=== PATIENT | male | born 1995 | race African-American/Black ===

== ENCOUNTER 2019-01-27 21:49 | Inpatient (IN) | payer SELFPAY ==
[~2019-01-27] VITALS: Ht 175.3 cm; Wt 65.0 kg
[2019-01-27 21:58] VITALS: Ht 175.3 cm; Wt 65.0 kg
[2019-01-27] MEDS ORDERED: HYDROmorphONE 1 MG/ML SYG IV STA ×2 (22:18→23:23)
[2019-01-27] MEDS ORDERED: SOD CHLORIDE 0.9% 1,000 ML IV STA (22:18)
[2019-01-27] MEDS ORDERED: ONDANSETRON 4 MG INJ IV STA ×2 (22:18→23:23)
[2019-01-28] MEDS ORDERED: HYDROmorphONE 2 MG/ML SYG IV STA (00:23)
[2019-01-28] MEDS ORDERED: KETOROLAC 30 MG INJ IV STA (00:31)
--- NOTE | 2019-01-28 00:33 | ERD ---
ER Documentation Chief Complaint Chief Complaint c/o body pain, joint pain x 3 days, hx of sickle cell HPI This is a very pleasant 23-year-old male complains of body pain joint pain for 3 days. Patient has history of sickle cell anemia. Says this is normal for her. Denies fevers or chills. He says taking medications at home with no relief. Denies any other current complaints. ROS All systems reviewed and are negative except as per history of present illness. Allergies Allergies: Coded Allergies: Sulfa (Sulfonamide Antibiotics) (Verified Allergy, Unknown, rash, 01/27/19) PMhx/Soc Medical and Surgical Hx: pt denies Surgical Hx History of Surgery: No Hx Miscellaneous Medical Probl: Yes (Sickle cell disease) Hx Alcohol Use: No Hx Substance Use: No Hx Tobacco Use: No Smoking Status: Unknown if ever smoked Physical Exam Vitals Vital Signs Date Temp Pulse Resp B/P (MAP) Pulse Ox O2 O2 Flow FiO2 Time Delivery Rate 01/28/19 65 17 113/69 98 Room Air 00:25 (84) 01/27/19 65 18 114/71 95 Room Air 23:20 (85) 01/27/19 97.9 76 18 126/72 95 21:58 (90) Physical Exam Const: No acute distress Head: Atraumatic Eyes: Normal Conjunctiva ENT: Normal External Ears, Nose and Mouth. Neck: Full range of motion. No meningismus. Resp: Clear to auscultation bilaterally Cardio: Regular rate and rhythm, no murmurs Abd: Soft, non tender, non distended. Normal bowel sounds Skin: No petechiae or rashes Back: No midline or flank tenderness Ext: No cyanosis, or edema Neur: Awake and alert Psych: Normal Mood and Affect Result Diagram: 01/27/19223501/27/192237 Results 24 hrs Laboratory Tests Test 01/27/19 22:36 01/27/19 22:38 White Blood Count 13.1 10^3/ul Red Blood Count 2.66 10^6/ul Hemoglobin 7.8 g/dl Hematocrit 22.4 % Mean Corpuscular Volume 84.2 fl Mean Corpuscular Hemoglobin 29.3 pg Mean Corpuscular Hemoglobin Concent 34.8 g/dl Red Cell Distribution Width 24.9 % Platelet Count 523 10^3/UL Mean Platelet Volume 9.8 fl Immature Granulocytes % 0.400 % Neutrophils % 40.0 % Segmented Neutrophils % (Manual) 32 % Lymphocytes % 44.3 % Lymphocytes % (Manual) 51 % Monocytes % 10.8 % Monocytes % (Manual) 6 % Eosinophils % 3.7 % Eosinophils % (Manual) 10 % Basophils % 0.8 % Basophils % (Manual) 1 % Nucleated Red Blood Cells % 0.6 /100WBC Immature Granulocytes # 0.050 10^3/ul Neutrophils # 5.2 10^3/ul Lymphocytes (Manual) 6.6 10^3/ul Lymphocytes # 5.8 10^3/ul Monocytes # 1.4 10^3/ul Monocytes # (Manual) 0.7 10^3/ul Eosinophils # 0.5 10^3/ul Basophils # 0.1 10^3/ul Basophils # (Manual) 0.1 10^3/ul Nucleated Red Blood Cells # 0.1 10^3/ul Platelet Estimate NORMAL Polychromasia 2+ Hypochromasia 1+ Poikilocytosis 3+ Anisocytosis 2+ Microcytosis 2+ Macrocytosis 1+ Sickle Cells 3+ Absolute Reticulocyte Count 0.350 X10^6 Percent Reticulocyte Count 13.2 % Iron Level 50 ug/dl Total Iron Binding Capacity 363 ug/dl Percent Iron Saturation 14 % SAT Sodium Level 140 mmol/L Potassium Level 3.5 mmol/L Chloride Level 104 mmol/L Carbon Dioxide Level 29 mmol/L Anion Gap 7 Blood Urea Nitrogen 7 mg/dl Creatinine 0.62 mg/dl Est Glomerular Filtrat Rate mL/min > 60 mL/min Glucose Level 105 mg/dl Calcium Level 9.0 mg/dl Ferritin 34.5 ng/ml Total Bilirubin 3.2 mg/dl Direct Bilirubin 0.00 mg/dl Indirect Bilirubin 3.2 mg/dl Aspartate Amino Transf (AST/SGOT) 48 IU/L Alanine Aminotransferase (ALT/SGPT) 29 IU/L Alkaline Phosphatase 52 IU/L Lactate Dehydrogenase 1521 IU/L Total Protein 7.9 g/dl Albumin 4.0 g/dl Globulin 3.90 g/dl Albumin/Globulin Ratio 1.02 Current Medications Medications Dose Sig/Tank Start Time Status Last (Trade) Ordered Route PRN Stop Time Admin Dose Reason Admin Sodium 1,000 ml @ Q1H STAT 01/27/19 DC 01/27/19 Chloride 1,000 mls/hr IV 22:18 22:27 01/27/19 23:17 1 mg ONCE STAT 01/27/19 DC 01/27/19 Hydromorphone IV 22:18 22:27 HCl 01/27/19 22:20 (Dilaudid) Ondansetron 4 mg ONCE STAT 01/27/19 DC 01/27/19 HCl (Zofran IV 22:18 22:27 Inj) 01/27/19 22:20 1 mg ONCE STAT 01/27/19 DC 01/27/19 Hydromorphone IV 23:23 23:26 HCl 01/27/19 23:24 (Dilaudid) Ondansetron 4 mg ONCE STAT 01/27/19 DC 01/27/19 HCl (Zofran IV 23:23 23:26 Inj) 01/27/19 23:24 2 mg ONCE STAT 01/28/19 DC Hydromorphone IV 00:23 HCl 01/28/19 00:29 (Dilaudid) Procedures/MDM Medical decision making: This is a 23-year-old male with vaso-occlusive crisis. Treated with fluids and pain medications. Patient has a severely elevated reticulocyte count and will need observation given his continued need for opioid analgesia. Dr. Murphy made aware. Departure Diagnosis: Primary Impression: Sickle cell crisis Condition: Serious LAKSHMI DAVID Jan 28, 2019 00:33
[2019-01-28] MEDS ORDERED: DIPHENHYDRAMINE 50 MG INJ IV ONE (01:00)
[2019-01-28] MEDS ORDERED: ONDANSETRON 4 MG INJ IV PRN ×2 (01:00)
[2019-01-28] MEDS ORDERED: BISACODYL (EC) 5 MG TAB PO PRN (01:00)
[2019-01-28] MEDS ORDERED: NACL 0.9% 3 ML SYG IV SCH (01:00)
[2019-01-28] MEDS ORDERED: DOCUSATE SODIUM 100 MG CAP PO PRN (01:00)
[2019-01-28] MEDS ORDERED: ACETAMINOPHEN 325 MG TAB PO PRN ×2 (01:00)
--- NOTE | 2019-01-28 01:40 | HP ---
Date/Time of Note Date/Time of Note DATE: 01/28/19 TIME: 01:40 Assessment/Plan VTE Prophylaxis Pharmacological prophylaxis: LMWH Lines/Catheters IV Catheter Type (from Nrs): Saline Lock Assessment/Plan Hospital Course This is a 23-year-old male being admitted to the [facility] floor for: #1 acute sickle cell crisis: Aggressive IV fluid hydration with normal saline, pain control with Dilaudid and Toradol. Zofran for nausea. PRN Benadryl for itching. Chest x-ray did not show any acute ab normalities. Will check urinalysis. Baseline hemoglobin according to the patient is 7.5-8, will transfuse PRBC if these levels drop. #2 Hyperbilirubinemia: likely secondary to sickeling. will check ruq US. #3 social work: Assistance in finding a PCP, assistance with current legal trouble. #4 DVT GI prophylaxis: Lovenox, no GI prophylaxis indicated Further treatment strategy will be implemented as per the clinical course. Result Diagram: 01/27/19223501/27/192237 Results 24hrs Laboratory Tests Test 01/27/19 22:36 01/27/19 22:38 White Blood Count 13.1 H Red Blood Count 2.66 L Hemoglobin 7.8 L Hematocrit 22.4 L Mean Corpuscular Volume 84.2 Mean Corpuscular Hemoglobin 29.3 Mean Corpuscular Hemoglobin Concent 34.8 Red Cell Distribution Width 24.9 H Platelet Count 523 H Mean Platelet Volume 9.8 Immature Granulocytes % 0.400 Neutrophils % 40.0 Segmented Neutrophils % (Manual) 32 L Lymphocytes % 44.3 Lymphocytes % (Manual) 51 Monocytes % 10.8 Monocytes % (Manual) 6 Eosinophils % 3.7 Eosinophils % (Manual) 10 H Basophils % 0.8 Basophils % (Manual) 1 Nucleated Red Blood Cells % 0.6 H Immature Granulocytes # 0.050 H Neutrophils # 5.2 Lymphocytes (Manual) 6.6 H Lymphocytes # 5.8 H Monocytes # 1.4 H Monocytes # (Manual) 0.7 Eosinophils # 0.5 Basophils # 0.1 Basophils # (Manual) 0.1 H Nucleated Red Blood Cells # 0.1 H Platelet Estimate NORMAL Polychromasia 2+ Hypochromasia 1+ Poikilocytosis 3+ Anisocytosis 2+ Microcytosis 2+ Macrocytosis 1+ Sickle Cells 3+ Absolute Reticulocyte Count 0.350 H Percent Reticulocyte Count 13.2 H Iron Level 50 Total Iron Binding Capacity 363 Percent Iron Saturation 14 L Sodium Level 140 Potassium Level 3.5 Chloride Level 104 Carbon Dioxide Level 29 Anion Gap 7 Blood Urea Nitrogen 7 Creatinine 0.62 Est Glomerular Filtrat Rate mL/min > 60 Glucose Level 105 Calcium Level 9.0 Ferritin 34.5 Total Bilirubin 3.2 H Direct Bilirubin 0.00 Indirect Bilirubin 3.2 H Aspartate Amino Transf (AST/SGOT) 48 H Alanine Aminotransferase (ALT/SGPT) 29 Alkaline Phosphatase 52 Lactate Dehydrogenase 1521 H Total Protein 7.9 Albumin 4.0 Globulin 3.90 H Albumin/Globulin Ratio 1.02 HPI/ROS Admit Date/Time Admit Date/Time Jan 28, 2019 at 00:32 Hx of Present Illness Chief complaint: Generalized body pains, history of sickle cell This is a 23-year-old male with a history of sickle cell disease who presented to the emergency department with complaints of generalized body pain for the last 3 days. Patient states that he started experiencing pain in this his knees, his hips and his shoulders and back for the last 3 days. He has a history of sickle cell disease and is followed by a specialist in [facility]. He states that he is endari and xickle but he no longer has these medications. He was previously in the past on hydroxyurea. His primary care doctor's name is in [facility]. Patient denies any chest pain or shortness of nando ath. He states that he was visiting [place] and he did run into trouble with the law and so is currently here awaiting his court date which is in approximately 2 to 3 weeks. He is unable to get back to [place] given his financial constraints. He does not have a primary care doctor here. He denies any fevers. He does report that his normal hemoglobin is between 7.5-8 and he has received transfusions in the past. Allergies: Sulfa medications: endari xickle ROS Const: As per HPI Eyes : No pain discharge or redness or change in visual acuity ENT: No pain, sore throat, congestion, congestion, dysphagia or discharge Respiratory: No shortness of breath, cough, sputum, wheezing, or pleuritic pain Cardiovascular: No chest pain, palpitation, PND, or edema GI : no change in appetite, abdominal pain, nausea, vomiting, diarrhea, constipation, or change in the color his stool Genitourinary: No dysuria, hematuria, flank pain , discharge or CVA tenderness Musculoskeletal: As per HPI Skin: No rash, bruising or hives Neuro: No headache, dizziness, syncope, seizure, focal weakness Endocrine: No polyuria, polydipsia, temperature intolerance Psych: No hallucination, depression, anxiety or suicidal ideation PMH/Family/Social Past Medical History Sickle cell disease Medications Current Medications Ondansetron HCl (Zofran Inj) 4 mg BRIDGE ORDER PRN IV NAUSEA/VOMITING; Start 01/28/19 at 01:00; Stop 01/29/19 at 00:59 Acetaminophen (Tylenol Tab) 650 mg ER BRIDGE PRN PO .MILD PAIN 1-3 OR TEMP; Start 01/28/19 at 01:00; Stop 01/29/19 at 00:59 Sodium Chloride 1,000 ml @ 125 mls/hr Q8H IV ; Start 01/28/19 at 00:55 IV Flush (NS 3 ml) 3 ml PER PROTOCOL IV ; Start 01/28/19 at 01:00 Ondansetron HCl (Zofran Inj) 4 mg Q6H PRN IV NAUSEA/VOMITING; Start 01/28/19 at 01:00 Acetaminophen (Tylenol Tab) 650 mg Q6H PRN PO .PAIN 1-3 OR TEMP; Start 01/28/19 at 01:00 Hydromorphone HCl (Dilaudid) 1 mg Q4H PRN IV .PAIN 7-10; Start 01/28/19 at 01:00 Docusate Sodium (Colace) 100 mg Q12H PRN PO .CONSTIPATION; Start 01/28/19 at 01:00 Bisacodyl (Dulcolax) 5 mg DAILY PRN PO .CONSTIPATION; Start 01/28/19 at 01:00 Enoxaparin Sodium (Lovenox) 40 mg DAILY SC ; Start 01/28/19 at 09:00 Diphenhydramine HCl (Benadryl) 25 mg Q6H PRN IV ITCHING; Start 01/28/19 at 01:00 Coded Allergies: Sulfa (Sulfonamide Antibiotics) (Verified Allergy, Unknown, rash, 01/27/19) Past Surgical History Past Surgical Hx: no surgical history Family History Significant Family History: no pertinent family hx Social History Alcohol Use: none Smoking Status: Unknown if ever smoked Drug Use: marijuana Exam/Review of Systems Vital Signs Vitals Vital Signs Date Temp Pulse Resp B/P (MAP) Pulse Ox O2 O2 Flow FiO2 Time Delivery Rate 01/28/19 70 13 123/69 96 Room Air 01:03 (87) 01/27/19 97.9 21:58 Exam Exam General: Patient is a pleasant male currently lying in bed in mild distress from pain HEENT: Atraumatic, normocephalic. The pupils are equal, round and reactive. Extraocular motor are intact Neck: Supple with full range of motion. No rigidity or meningismus Chest: Nontender Lungs: Clear to auscultation bilaterally no crackles rales or wheezing Heart: Normal S1-S2, Regular rhythm and rate. No murmur, S3, or S4 Abdomen: Soft , nontender, nondistended , bowel sounds are present. No guarding no rebound tenderness , No masses or organomegaly. No costovertebral temporal angle mass Extremities: Normal to inspection, no edema no cyanosis Neurologic: Normal mental status, speech normal, cranial nerves II through XII are intact, motor and sensory are intact, Additional Comments PROCEDURE: XR Chest. CLINICAL INDICATION: Pain TECHNIQUE: AP chest was obtained COMPARISON: None. FINDINGS: Cardiomediastinal silhouette is normal. Pulmonary vasculature is normal. Lungs and costophrenic angles are clear. Mild levorotatory scoliosis mid to upper thoracic cervical spine. IMPRESSION: No evidence of acute cardiopulmonary disease. RPTAT:AAJJ Physician Keaton Date Time Electronically viewed and signed by Physician Keaton on 01/28/2019 03:04 BM/ CC: ASHLEIGH RAMIREZ [id number] ASHLEIGH RAMIREZ Jan 28, 2019 01:40
[2019-01-28 01:46] VITALS: BP 114/70; PULSE 61; RESP 18
[2019-01-28] MEDS: SOD CHLORIDE 0.9% 1,000 ML IV SCH ×3 (02:01→20:19)
[2019-01-28] MEDS: HYDROmorphONE 0.5 MG/0.5 ML SYG IV PRN ×4 (04:34→18:52)
[2019-01-28 07:42] VITALS: BP 109/55; PULSE 64; RESP 20
[2019-01-28] MEDS: ENOXAPARIN 40 MG/0.4 ML SYG SC SCH (08:16)
[2019-01-28] MEDS: DIPHENHYDRAMINE 50 MG INJ IV PRN ×2 (08:28→20:18)
[2019-01-28] MEDS: KETOROLAC 15 MG INJ IV PRN ×2 (11:37→21:54)
[2019-01-28 14:26] VITALS: BP 111/58; PULSE 71; RESP 20
--- NOTE | 2019-01-28 14:43 | PN ---
Date/Time of Note Date/Time of Note DATE: 01/28/19 TIME: 14:42 Assessment/Plan VTE Prophylaxis SCD applied (from Nsg): No SCD contraindicated: low risk/ambulating Pharmacological prophylaxis: NA/contraindicated Pharm contraindication: low risk/ambulating Lines/Catheters IV Catheter Type (from Nrsg): Peripheral IV Assessment/Plan Hospital Course SUBJECTIVE: Continues to complain of generalized body pain. OBJECTIVE: Physical Exam General: Adequately build 23 year-old male lying in bed in no apparent distress. HEENT: Normocephalic, atraumatic. Eyes: Anicteric sclerae, conjunctivae clear. ENT: Nasal septum midline, oral mucosa moist. Neck supple, no JVD noticed. Respiratory: Bilaterally clear breath sounds. No use of accessory muscles of respiration. No adventitious breath sounds. Cardiovascular: S1, S2 heard. Regular rate and rhythm. Abdomen: Soft, nontender, and nondistended. Bowel sounds positive in all 4 quadrants. Genitourinary: Deferred. Extremities: No cyanosis, no clubbing, no edema. Peripheral pulses palpable. Neurologic: Cranial nerves II through XII grossly intact. The patient is awake, alert, and oriented. Skin: Normal skin turgor. No skin rashes. Labs & Vitals per chart ASSESSMENT & PLAN 23-year-old male with past medical history of sickle cell disease who presented to the emergency department with complaints of generalized body pain, who was found to have evidence of underlying sickle cell crisis and was admitted to inpatient setting for further treatment and evaluation. 1. Sickle cell crisis. Continue IV hydration. Continue oxygen supplementation as needed. Continue pain control. Pain management team has been consulted. 2. Hyperbilirubinemia. Possibly related to underlying sickling. 3. Fluids, electrolytes, and nutrition. Regular diet. 4. DVT prophylaxis. Ambulation. 5. Plan. Continue pain control, IV hydration, and other supportive care. Await clinical improvement before discharging the patient home. The patient was seen in collaboration with Dr. Mendoza. Result Diagram: 01/28/1942601/28/19426 Results 24hrs Laboratory Tests Test 01/27/19 22:36 01/27/19 22:38 01/28/19 04:27 01/28/19 12:50 White Blood Count 13.1 H 12.9 H Red Blood Count 2.66 L 2.34 L Hemoglobin 7.8 L 6.8 *L Hematocrit 22.4 L 19.8 L Mean Corpuscular 84.2 84.6 Volume Mean Corpuscular 29.3 29.1 Hemoglobin Mean Corpuscular 34.8 34.3 Hemoglobin Concent Red Cell 24.9 H 24.5 H Distribution Width Platelet Count 523 H 437 H Mean Platelet Volume 9.8 10.1 Immature 0.400 0.400 Granulocytes % Neutrophils % 40.0 34.5 L Segmented 32 L 43 Neutrophils % (Manual) Lymphocytes % 44.3 47.8 Lymphocytes % 51 38 (Manual) Monocytes % 10.8 11.1 H Monocytes % (Manual) 6 9 Eosinophils % 3.7 5.4 Eosinophils % 10 H 9 H (Manual) Basophils % 0.8 0.8 Basophils % (Manual) 1 1 Nucleated Red Blood 0.6 H 1 H Cells % Immature 0.050 H 0.050 H Granulocytes # Neutrophils # 5.2 4.5 Lymphocytes (Manual) 6.6 H 4.9 H Lymphocytes # 5.8 H 6.2 H Monocytes # 1.4 H 1.4 H Monocytes # (Manual) 0.7 1.1 H Eosinophils # 0.5 0.7 H Basophils # 0.1 0.1 Basophils # (Manual) 0.1 H 0.1 H Nucleated Red Blood 0.1 H 0.1 H Cells # Platelet Estimate NORMAL INCREASED Polychromasia 2+ 1+ Hypochromasia 1+ 2+ Poikilocytosis 3+ 3+ Anisocytosis 2+ 2+ Microcytosis 2+ 1+ Macrocytosis 1+ 1+ Sickle Cells 3+ POSITIVE Absolute 0.350 H Reticulocyte Count Percent Reticulocyte 13.2 H Count Iron Level 50 Total Iron Binding 363 Capacity Percent Iron 14 L Saturation Sodium Level 140 142 Potassium Level 3.5 3.5 Chloride Level 104 108 Carbon Dioxide Level 29 28 Anion Gap 7 6 Blood Urea Nitrogen 7 10 Creatinine 0.62 0.57 L Est Glomerular > 60 > 60 Filtrat Rate mL/min Glucose Level 105 90 Calcium Level 9.0 8.1 L Ferritin 34.5 Total Bilirubin 3.2 H 3.4 H Direct Bilirubin 0.00 0.00 Indirect Bilirubin 3.2 H 3.4 H Aspartate Amino 48 H 43 Transf (AST/SGOT) Alanine 29 27 Aminotransferase (AL T/SGPT) Alkaline Phosphatase 52 52 Lactate 1521 H Dehydrogenase Total Protein 7.9 6.6 # Albumin 4.0 3.3 Globulin 3.90 H 3.30 H Albumin/Globulin 1.02 1.00 Ratio White Cell @See below Morphology Comment Giant Platelets 2 H Target Cells 1+ Red Cell Morphology @See below Comment Urine Color YELLOW Urine Clarity CLEAR Urine pH 6.0 Urine Specific 1.009 [place] Urine Ketones NEGATIVE Urine Nitrite NEGATIVE Urine Bilirubin NEGATIVE Urine Urobilinogen 2+ H Urine Leukocyte NEGATIVE Esterase Urine Microscopic 0 RBC Urine Microscopic 1 WBC Urine Hemoglobin 1+ H Urine Glucose NEGATIVE Urine Total Protein NEGATIVE Exam/Review of Systems Exam Vitals Vital Signs Date Temp Pulse Resp B/P (MAP) Pulse Ox O2 O2 Flow FiO2 Time Delivery Rate 01/28/19 97.8 71 20 111/58 100 14:26 (75) 01/28/19 Room Air 01:03 Intake and Output 01/27/19 01/27/19 01/28/19 1515:00 23:00 07:00 IntakeIntake Total 500 ml BalanceBalance 500 ml Results Results 24hrs Laboratory Tests Test 01/27/19 22:36 01/27/19 22:38 01/28/19 04:27 01/28/19 12:50 White Blood Count 13.1 H 12.9 H Red Blood Count 2.66 L 2.34 L Hemoglobin 7.8 L 6.8 *L Hematocrit 22.4 L 19.8 L Mean Corpuscular 84.2 84.6 Volume Mean Corpuscular 29.3 29.1 Hemoglobin Mean Corpuscular 34.8 34.3 Hemoglobin Concent Red Cell 24.9 H 24.5 H Distribution Width Platelet Count 523 H 437 H Mean Platelet Volume 9.8 10.1 Immature 0.400 0.400 Granulocytes % Neutrophils % 40.0 34.5 L Segmented 32 L 43 Neutrophils % (Manual) Lymphocytes % 44.3 47.8 Lymphocytes % 51 38 (Manual) Monocytes % 10.8 11.1 H Monocytes % (Manual) 6 9 Eosinophils % 3.7 5.4 Eosinophils % 10 H 9 H (Manual) Basophils % 0.8 0.8 Basophils % (Manual) 1 1 Nucleated Red Blood 0.6 H 1 H Cells % Immature 0.050 H 0.050 H Granulocytes # Neutrophils # 5.2 4.5 Lymphocytes (Manual) 6.6 H 4.9 H Lymphocytes # 5.8 H 6.2 H Monocytes # 1.4 H 1.4 H Monocytes # (Manual) 0.7 1.1 H Eosinophils # 0.5 0.7 H Basophils # 0.1 0.1 Basophils # (Manual) 0.1 H 0.1 H Nucleated Red Blood 0.1 H 0.1 H Cells # Platelet Estimate NORMAL INCREASED Polychromasia 2+ 1+ Hypochromasia 1+ 2+ Poikilocytosis 3+ 3+ Anisocytosis 2+ 2+ Microcytosis 2+ 1+ Macrocytosis 1+ 1+ Sickle Cells 3+ POSITIVE Absolute 0.350 H Reticulocyte Count Percent Reticulocyte 13.2 H Count Iron Level 50 Total Iron Binding 363 Capacity Percent Iron 14 L Saturation Sodium Level 140 142 Potassium Level 3.5 3.5 Chloride Level 104 108 Carbon Dioxide Level 29 28 Anion Gap 7 6 Blood Urea Nitrogen 7 10 Creatinine 0.62 0.57 L Est Glomerular > 60 > 60 Filtrat Rate mL/min Glucose Level 105 90 Calcium Level 9.0 8.1 L Ferritin 34.5 Total Bilirubin 3.2 H 3.4 H Direct Bilirubin 0.00 0.00 Indirect Bilirubin 3.2 H 3.4 H Aspartate Amino 48 H 43 Transf (AST/SGOT) Alanine 29 27 Aminotransferase (AL T/SGPT) Alkaline Phosphatase 52 52 Lactate 1521 H Dehydrogenase Total Protein 7.9 6.6 # Albumin 4.0 3.3 Globulin 3.90 H 3.30 H Albumin/Globulin 1.02 1.00 Ratio White Cell @See below Morphology Comment Giant Platelets 2 H Target Cells 1+ Red Cell Morphology @See below Comment Urine Color YELLOW Urine Clarity CLEAR Urine pH 6.0 Urine Specific 1.009 [place] Urine Ketones NEGATIVE Urine Nitrite NEGATIVE Urine Bilirubin NEGATIVE Urine Urobilinogen 2+ H Urine Leukocyte NEGATIVE Esterase Urine Microscopic 0 RBC Urine Microscopic 1 WBC Urine Hemoglobin 1+ H Urine Glucose NEGATIVE Urine Total Protein NEGATIVE Medications Medication Current Medications Sodium Chloride 1,000 ml @ 125 mls/hr Q8H IV Last administered on 01/28/19at 09:58; Admin Dose 125 MLS/HR; Start 01/28/19 at 00:55 IV Flush (NS 3 ml) 3 ml PER PROTOCOL IV ; Start 01/28/19 at 01:00 Ondansetron HCl (Zofran Inj) 4 mg Q6H PRN IV NAUSEA/VOMITING; Start 01/28/19 at 01:00 Acetaminophen (Tylenol Tab) 650 mg Q6H PRN PO .PAIN 1-3 OR TEMP; Start 01/28/19 at 01:00 Hydromorphone HCl (Dilaudid) 1 mg Q4H PRN IV .PAIN 7-10 Last administered on 01/28/19at 13:38; Admin Dose 1 MG; Start 01/28/19 at 01:00 Docusate Sodium (Colace) 100 mg Q12H PRN PO .CONSTIPATION; Start 01/28/19 at 01:00 Bisacodyl (Dulcolax) 5 mg DAILY PRN PO .CONSTIPATION; Start 01/28/19 at 01:00 Enoxaparin Sodium (Lovenox) 40 mg DAILY SC ; Start 01/28/19 at 09:00 Diphenhydramine HCl (Benadryl) 25 mg Q6H PRN IV ITCHING Last administered on 01/28/19at 08:28; Admin Dose 25 MG; Start 01/28/19 at 01:00 Ketorolac Tromethamine (Toradol) 15 mg Q6H PRN IV PAIN Last administered on 01/28/19at 11:37; Admin Dose 15 MG; Start 01/28/19 at 07:30; Stop 01/30/19 at 07:29 SELENE LIU NP Jan 28, 2019 14:43
[2019-01-28 19:59] VITALS: BP 115/65; PULSE 78; RESP 18
[2019-01-29] MEDS: HYDROmorphONE 0.5 MG/0.5 ML SYG IV PRN ×4 (00:41→16:26)
[2019-01-29] MEDS: SOD CHLORIDE 0.9% 1,000 ML IV SCH ×2 (00:55→06:42)
[2019-01-29 02:11] VITALS: BP 112/62; PULSE 55; RESP 16
[2019-01-29] MEDS: DIPHENHYDRAMINE 50 MG INJ IV PRN ×2 (03:15→08:10)
[2019-01-29 07:47] VITALS: BP 121/74; PULSE 64; RESP 18
[2019-01-29] MEDS: ENOXAPARIN 40 MG/0.4 ML SYG SC SCH (08:09)
[2019-01-29] MEDS ORDERED: OXYC-279 PO (11:41)
--- NOTE | 2019-01-29 11:46 | PDOCDIS ---
Discharge Instructions CONDITION [id number] Patient Condition: [id number] Stable HOME CARE INSTRUCTIONS: [id number] Diet Instructions: [id number] Regular OTHER ORDERS: Other Orders: 1. Take pain medications as needed. 2. Take a regular diet. 3. Resume activities as tolerated. 4. Please follow-up with [facility] sickle cell clinic. SELENE LIU NP Jan 29, 2019 11:46
--- NOTE | 2019-01-29 11:51 | CONS ---
Assessment/Plan Assessment/Plan Assessment/Plan (Daily) Sickle cell crisis Now stable on IV fluids pain control medications and transfusions And oxygen Visually pain is under better control he admits that he is not having as much pain as he did when he first presented to this hospital Hyperbilirubinemia probably secondary to hemolysis Of a long conversation with him that he needs to find a glazier helper in the community have referred him to sickle cell clinic at [facility]. Consultation Date/Type/Reason Admit Date/Time Jan 28, 2019 at 00:32 Date/Time of Note DATE: 01/29/19 TIME: 11:47 Hx of Present Illness 23-year-old gentleman who was diagnosed with sickle cell anemia during his childhood. Patient states he has 2-3 times per month crises and has had to go to the emergency room. He has average once a month to be hospitalized. Patient hails from [place] he has no medication he is currently living in a hotel room. At one time he was on hydroxyurea but stopped it secondary to mouth sores this is been many years ago. He is up-to-date on his vaccinations. He has no idea why he has had a crisis at this time. Patient states in the past has had to pulmonary syndrome which required hospitalization intubation and a 2-month hospital stay. His only medication he takes at home include tramadol Motrin and Percocet as needed which he has run out secondary to insurance reasons. Constitutional: no complaints, improved Eyes: no complaints ENT: no complaints Respiratory: no complaints; No pain, No cough, No pleuritic pain, No shortness of breath, No sputum, No wheezing, No other Cardiovascular: no complaints Gastrointestinal: no complaints Genitourinary: no complaints Musculoskeletal: no complaints Skin: no complaints Neurologic: no complaints Endocrine: no complaints Past Medical History Medications Current Medications Sodium Chloride 1,000 ml @ 125 mls/hr Q8H IV Last administered on 01/29/19at 06:42; Admin Dose 125 MLS/HR; Start 01/28/19 at 00:55 IV Flush (NS 3 ml) 3 ml PER PROTOCOL IV ; Start 01/28/19 at 01:00 Ondansetron HCl (Zofran Inj) 4 mg Q6H PRN IV NAUSEA/VOMITING Last administered on 01/28/19at 18:40; Admin Dose 4 MG; Start 01/28/19 at 01:00 Acetaminophen (Tylenol Tab) 650 mg Q6H PRN PO .PAIN 1-3 OR TEMP; Start 01/28/19 at 01:00 Hydromorphone HCl (Dilaudid) 1 mg Q4H PRN IV .PAIN 7-10 Last administered on 01/29/19at 08:10; Admin Dose 1 MG; Start 01/28/19 at 01:00 Docusate Sodium (Colace) 100 mg Q12H PRN PO .CONSTIPATION; Start 01/28/19 at 01:00 Bisacodyl (Dulcolax) 5 mg DAILY PRN PO .CONSTIPATION; Start 01/28/19 at 01:00 Enoxaparin Sodium (Lovenox) 40 mg DAILY SC ; Start 01/28/19 at 09:00 Diphenhydramine HCl (Benadryl) 25 mg Q6H PRN IV ITCHING Last administered on 01/29/19at 08:10; Admin Dose 25 MG; Start 01/28/19 at 01:00 Ketorolac Tromethamine (Toradol) 15 mg Q6H PRN IV PAIN Last administered on 01/28/19at 21:54; Admin Dose 15 MG; Start 01/28/19 at 07:30; Stop 01/30/19 at 07:29 Allergies: Coded Allergies: Sulfa (Sulfonamide Antibiotics) (Verified Allergy, Unknown, rash, 01/27/19) Past Surgical History Past Surgical Hx: no surgical history Social History Alcohol Use: none Smoking Status: Never smoker Drug Use: none, marijuana Exam/Review of Systems Exam Vitals Vital Signs Date Temp Pulse Resp B/P (MAP) Pulse Ox O2 O2 Flow FiO2 Time Delivery Rate 01/29/19 98.1 64 18 121/74 93 Room Air 07:47 (90) Intake and Output 01/28/19 01/28/19 01/29/19 1515:00 23:00 07:00 IntakeIntake Total 1580 ml 1330 ml 1250 ml OutputOutput Total 1200 ml 1000 ml BalanceBalance 380 ml 330 ml 1250 ml Constitutional: alert, oriented, well developed Psych: anxiety Eyes: nl conjunctiva, EOMI, nl lids, nl sclera, PERRL ENMT: nl external ears & nose, nl lips & teeth, nl nasal mucosa & septum Neck: supple, non-tender Respiratory: clear to auscultation, normal air movement Cardiovascular: regular rate and rhythm, nl pulses Gastrointestinal: soft, nl liver, spleen, non-tender; No ascites, No bowel sounds, No distended, No firm, No hepatomegaly, No mass, No rebound or guarding, No splenomegaly, No surgical scars, No tender, No other Musculoskeletal: nl extremities to inspection, nl gait and stance Extremities: normal pulses Neurological: [employer] II-XII intact, nl mental status, nl speech, nl strength Skin: nl turgor; No rash or lesions Results Result Diagram: 01/29/19 0435 01/29/19 0435 Results 24hrs Laboratory Tests Test 01/28/19 12:50 01/29/19 04:35 01/29/19 06:23 Urine Color YELLOW Urine Clarity CLEAR Urine pH 6.0 Urine Specific [place] 1.009 Urine Ketones NEGATIVE Urine Nitrite NEGATIVE Urine Bilirubin NEGATIVE Urine Urobilinogen 2+ H Urine Leukocyte Esterase NEGATIVE Urine Microscopic RBC 0 Urine Microscopic WBC 1 Urine Hemoglobin 1+ H Urine Glucose NEGATIVE Urine Total Protein NEGATIVE White Blood Count 11.9 H Red Blood Count 2.70 L Hemoglobin 7.7 L Hematocrit 21.9 L Mean Corpuscular Volume 81.1 L Mean Corpuscular Hemoglobin 28.5 L Mean Corpuscular 35.2 Hemoglobin Concent Red Cell Distribution Width 23.1 H Platelet Count 407 Mean Platelet Volume 10.3 Immature Granulocytes % 0.400 Neutrophils % 36.6 L Segmented Neutrophils 24 L % (Manual) Band Neutrophils % (Manual) 2 Lymphocytes % 43.2 Lymphocytes % (Manual) 62 H Monocytes % 10.2 Monocytes % (Manual) 5 Eosinophils % 8.5 H Eosinophils % (Manual) 7 Basophils % 1.1 Nucleated Red Blood Cells % 0.7 H Immature Granulocytes # 0.050 H Neutrophils # 4.3 Neutrophils # (Manual) 2.9 Band Neutrophils # 0.2 Lymphocytes (Manual) 7.3 H Lymphocytes # 5.1 H Monocytes # 1.2 H Monocytes # (Manual) 0.5 Eosinophils # 1.0 H Basophils # 0.1 Nucleated Red Blood Cells # 0.1 H Platelet Estimate NORMAL Polychromasia 3+ Poikilocytosis 3+ Anisocytosis 2+ Microcytosis 2+ Macrocytosis 1+ Sickle Cells 3+ Target Cells 1+ Sodium Level 142 Potassium Level 4.2 Chloride Level 111 H Carbon Dioxide Level 26 Anion Gap 5 Blood Urea Nitrogen 9 Creatinine 0.55 L Est Glomerular Filtrat > 60 Rate mL/min Glucose Level 78 Calcium Level 8.2 L Phosphorus Level 4.8 Magnesium Level 2.0 Total Bilirubin 3.5 H Direct Bilirubin 0.00 Indirect Bilirubin 3.5 H Aspartate Amino 49 H Transf (AST/SGOT) Alanine 22 Aminotransferase (ALT/SGPT) Alkaline Phosphatase 43 Total Protein 6.6 Albumin 3.3 Globulin 3.30 H Albumin/Globulin Ratio 1.00 Lab Scanned Report BLOOD TRANSFUSION Medications Medication Current Medications Sodium Chloride 1,000 ml @ 125 mls/hr Q8H IV Last administered on 01/29/19at 06:42; Admin Dose 125 MLS/HR; Start 01/28/19 at 00:55 IV Flush (NS 3 ml) 3 ml PER PROTOCOL IV ; Start 01/28/19 at 01:00 Ondansetron HCl (Zofran Inj) 4 mg Q6H PRN IV NAUSEA/VOMITING Last administered on 01/28/19at 18:40; Admin Dose 4 MG; Start 01/28/19 at 01:00 Acetaminophen (Tylenol Tab) 650 mg Q6H PRN PO .PAIN 1-3 OR TEMP; Start 01/28/19 at 01:00 Hydromorphone HCl (Dilaudid) 1 mg Q4H PRN IV .PAIN 7-10 Last administered on 01/29/19at 08:10; Admin Dose 1 MG; Start 01/28/19 at 01:00 Docusate Sodium (Colace) 100 mg Q12H PRN PO .CONSTIPATION; Start 01/28/19 at 01:00 Bisacodyl (Dulcolax) 5 mg DAILY PRN PO .CONSTIPATION; Start 01/28/19 at 01:00 Enoxaparin Sodium (Lovenox) 40 mg DAILY SC ; Start 01/28/19 at 09:00 Diphenhydramine HCl (Benadryl) 25 mg Q6H PRN IV ITCHING Last administered on 01/29/19at 08:10; Admin Dose 25 MG; Start 01/28/19 at 01:00 Ketorolac Tromethamine (Toradol) 15 mg Q6H PRN IV PAIN Last administered on at 21:54; Admin Dose 15 MG; Start 01/28/19 at 07:30; Stop 01/30/19 at 07:29 BUTCH ESCALANTE Jan 29, 2019 11:51
--- NOTE | 2019-01-29 11:52 | DS ---
Date/Time of Note Date/Time of Note DATE: 01/29/19 TIME: 11:50 Discharge Summary Admission/Discharge Info Admit Date/Time Jan 28, 2019 at 00:32 Discharge Date/Time Discharge Diagnosis 1. Sickle cell crisis. Patient Condition: Stable Consults 1. Blake Nascimento MD, Pain Management. Procedures [place] [id number] Radiology Main Line: [phone] DIAGNOSTIC IMAGING REPORT Patient: ERICK PAT : 1995 Age: 23 Sex: M MR #: [id number] DOS: 01/28/19 0000 Ordering MD: ASHLEIGH RAMIREZ MD Location: [facility] Room/Bed: [facility] PROCEDURE: US Abdomen (right upper quadrant). CLINICAL INDICATION: Abdominal pain TECHNIQUE: Multiple real-time longitudinal and transverse images of the right upper quadrant of the abdomen were acquired utilizing a curved array transducer. Images were reviewed on a high-resolution PACS workstation. COMPARISON: None FINDINGS: The liver is normal in size and echogenicity without focal mass or intrahepatic biliary dilatation. The gallbladder is normal. There is no pericholecystic fluid or gallbladder wall thickening or gallstones. No intra or extrahepatic biliary dilatation is seen. The common bile duct measures 3.4 mm in maximal dimension. The visualized portions of the pancreas are unremarkable with obscuration of the tail of the pancreas. No free fluid is identified. The right kidney measures 13.2 cm in length. There is normal echogenicity within the right kidney. There is no perinephric fluid collection. No hydronephrosis, mass, or calculus is seen. IMPRESSION: Unremarkable right upper quadrant ultrasound. CXR IMPRESSION: No evidence of acute cardiopulmonary disease. Hx of Present Illness This is a 23-year-old male with past medical history of sickle cell disease who presented to the emergency department with complaints of generalized body pain, who was found to have evidence of underlying sickle cell crisis and was admitted to inpatient setting for further treatment and evaluation. Hospital Course The patient was maintained on IV hydration. The patient was maintained on supplemental oxygen as needed. He was provided with adequate pain control. Pain management consult was obtained who agreed with the pain control strategy. The patient had evidence of underlying anemia. The patient received 1 unit of PRBC transfusion during this hospitalization. The patient responded well to this treatment strategy. The patient is visiting [place] from [place]. Therefore, he has limited resources here. The patient was advised to follow-up with the [facility] sickle cell clinic. The patient was also noted to have un derlying hyperbilirubinemia. The patient's liver ultrasound was negative. The patient's hyperbilirubinemia could be most probably secondary to his underlying sickle cell crisis. The patient had a stable hospital course. The patient is stable to be discharged, to be followed up with outpatient [facility] clinic. Discharge Instructions 1. Take pain medications as needed. 2. Take a regular diet. 3. Resume activities as tolerated. 4. Please follow-up with [facility] sickle cell clinic. The patient verbalized understanding of his discharge instructions. At this time I would like to thank Dr. Nascimento for seeing the patient and providing clinical recommendations. The patient was seen in collaboration with Dr. Mendoza. Home Meds Active Scripts Oxycodone HCl/Acetaminophen (Percocet 5-325 mg Tablet) 1 Each Tablet, 1 EACH PO Q6H for Pain, #10 TAB Prov:SELENE LIU ASTROCHEMIST 01/29/19 Follow-up Plan Patient to follow-up with [facility]. Primary Care Provider Care Physician No Primary Time spent on discharge: > 30 minutes Pending Labs Laboratory Tests Test 01/28/19 12:50 01/29/19 04:35 01/29/19 06:23 Urine Color YELLOW (YELLOW) Urine Clarity CLEAR (CLEAR) Urine pH 6.0 (5.0-9.0) Urine Specific 1.009 (1.003-1.030) [place] Urine Ketones NEGATIVE mg/dL (NEGATIVE) Urine Nitrite NEGATIVE mg/dL (NEGATIVE) Urine Bilirubin NEGATIVE mg/dL (NEGATIVE) Urine Urobilinogen 2+ mg/dL (NEGATIVE) Urine Leukocyte NEGATIVE Liza/ul Esterase Urine Microscopic 0 /HPF (0-5) RBC Urine Microscopic 1 /HPF (0-5) WBC Urine Hemoglobin 1+ mg/dL (NEGATIVE) Urine Glucose NEGATIVE mg/dL (NEGATIVE) Urine Total NEGATIVE Protein mg/dl (NEGATIVE) White Blood Count 11.9 10^3/ul (4.8-10.8) Red Blood Count 2.70 10^6/ul (4.70-6.10) Hemoglobin 7.7 g/dl (14.0-18.0) Hematocrit 21.9 % (42.0-52.0) Mean Corpuscular 81.1 Volume fl (82.0-101.0) Mean Corpuscular 28.5 pg (29.0-33.0) Hemoglobin Mean Corpuscular 35.2 Hemoglobin Concent g/dl (32.0-37.0) Red Cell 23.1 % (11.5-14.5) Distribution Width Platelet Count 407 10^3/UL (140-415) Mean Platelet 10.3 fl (7.4-10.4) Volume Immature 0.400 Granulocytes % % (0.001-0.429) Neutrophils % 36.6 % (39.0-77.0) Segmented 24 % (39-77) Neutrophils % (Manual) Band Neutrophils % 2 % (0-4) (Manual) Lymphocytes % 43.2 % (15.0-51.0) Lymphocytes % 62 % (15-51) (Manual) Monocytes % 10.2 % (0.0-11.0) Monocytes % 5 % (0-11) (Manual) Eosinophils % 8.5 % (0.0-7.0) Eosinophils % 7 % (0-7) (Manual) Basophils % 1.1 % (0.0-2.0) Nucleated Red Blood 0.7 Cells % /100WBC (0.0-0.0) Immature 0.050 Granulocytes # 10^3/ul (0.0-0.031) Neutrophils # 4.3 10^3/ul (1.6-7.5) Neutrophils # 2.9 (Manual) 10^3/ul (1.6-7.5) Band Neutrophils # 0.2 10^3/ul (0.0-0.6) Lymphocytes 7.3 (Manual) 10^3/ul (0.8-2.9) Lymphocytes # 5.1 10^3/ul (0.8-2.9) Monocytes # 1.2 10^3/ul (0.3-0.9) Monocytes # 0.5 (Manual) 10^3/ul (0.3-0.9) Eosinophils # 1.0 10^3/ul (0.0-0.5) Basophils # 0.1 10^3/ul (0.0-0.1) Nucleated Red Blood 0.1 Cells # 10^3/ul (0.0-0.0) Platelet Estimate NORMAL Polychromasia 3+ (0-0) Poikilocytosis 3+ (0-0) Anisocytosis 2+ (0-0) Microcytosis 2+ (0-0) Macrocytosis 1+ (0-0) Sickle Cells 3+ (0-0) Target Cells 1+ (0-0) Sodium Level 142 mmol/L (135-144) Potassium Level 4.2 mmol/L (3.5-5.1) Chloride Level 111 mmol/L (97-110) Carbon Dioxide 26 mmol/L (21-31) Level Anion Gap 5 (5-13) Blood Urea Nitrogen 9 mg/dl (7-20) Creatinine 0.55 mg/dl (0.61-1.24) Est Glomerular > 60 mL/min (>60) Filtrat Rate mL/min Glucose Level 78 mg/dl (70-220) Calcium Level 8.2 mg/dl (8.4-10.2) Phosphorus Level 4.8 mg/dl (2.5-4.9) Magnesium Level 2.0 mg/dl (1.7-2.5) Total Bilirubin 3.5 mg/dl (0.2-1.3) Direct Bilirubin 0.00 mg/dl (0.00-0.20) Indirect Bilirubin 3.5 mg/dl (0-1.1) Aspartate Amino 49 IU/L (15-46) Transf (AST/SGOT) Alanine 22 IU/L (13-69) Aminotransferase (A LT/SGPT) Alkaline 43 IU/L (42-121) Phosphatase Total Protein 6.6 g/dl (6.1-8.1) Albumin 3.3 g/dl (3.3-4.9) Globulin 3.30 g/dl (1.3-3.2) Albumin/Globulin 1.00 Ratio Lab Scanned Report BLOOD TRANSFUSION SELENE LIU NP Jan 29, 2019 11:52
[2019-01-29 15:00] VITALS: BP 122/62; PULSE 83; RESP 18
== END 2019-01-29 18:30 | disposition home or self-care (01) | DRG 812 ==
LOC: E/R 21:49 → 2NE 01-28 00:32
PROVIDERS: ADMIT Family Medicine; ATTEND Family Medicine
PROC: 30233N1 Transfusion of Nonautologous Red Blood Cells into Peripheral Vein, Percutaneous Approach (ICD-10-PCS; principal; 2019-01-28)
DX: D57.00 Hb-SS disease with crisis, unspecified (principal); E80.6 Other disorders of bilirubin metabolism
CPT/HCPCS: 36430; 71045; 76705; 80053; 81001; 82728; 83540; 83615; 83735; 84100; 84466; 85025; 85045; 85660; 86850; 86870; 86900; 86901; 86920; 96374; 96375; 96376; J1170; J1200; J1885; J2405; J7030; P9016